=== PATIENT | female | born 1990 | race African-American/Black ===

== ENCOUNTER 2017-08-16 20:51 | Emergency (ER) | payer OTHER ==
[~2017-08-16] VITALS: Ht 162.6 cm; Wt 60.6 kg
[~2017-08-16 20:51] MED LIST: DEPO-PROVER150 MG/ML IM; DESYREL12.5 MG; FLEXERIL10 MG PO; MOTRIN600 MG PO; Omnicef PO; PREDNISONE10 M1 PO; PROMETHAZINE HC25 M1 PO; Proventil,Ventolin H IH; RELPAX40 MG PO; Robitussin DM PO; TESSALON PERLE100 MG PO; TOPAMAX25 MG PO; TYLENOL WITH C1 EACH PO; Tylenol Regular Stre PO; ZOFRAN4 MG PO; Zithromax PO; [UNRECOGNIZED DRUG - REMARK]
[2017-08-16 21:24] LABS: HEMATOCRIT 39.5 % (36.0-46.0); MCH 29.6 PG (29.0-34.0); MCHC 33.7 G/DL (30.0-36.0); MCV 87.8 FL (83-99); MEAN PLAT.VOLUME 9.8 uM^3 (9.5-12.4); PLATELET COUNT 218 K/uL (156-360); RBC DIS.WIDTH-CV 14.2 % (11.8-14.6); RBC DIS.WIDTH-SD 45.1 % (39-53); WHITE BLOOD COUNT 9.7 K/uL (4.1-10.2)
[2017-08-16 21:33] LABS: ADD MIUA? YES; BILIRUBIN NEGATIVE; BLOOD SMALL; COLOR YELLOW ((YELLOW)); GLUCOSE (STRIP) NEGATIVE; KETONES NEGATIVE; LEUKOCYTES LARGE; NITRITE NEGATIVE; PROTEIN (STRIP) 100; SPECIFIC GRAVITY 1.013 (1.000-1.030); UROBILINOGEN 0.2 MG/DL (0.2-1.0)
[2017-08-16 21:35] LABS: CHLORIDE 108 mEq/L (99-109); SODIUM 138 mEq/L (136-147)
[2017-08-16 21:37] LABS: GLUCOSE 98 mg/dL (70-99)
[2017-08-16 21:39] LABS: ANION GAP 7 MEQ/L (2-14); TOTAL BILIRUBIN 0.2 mg/dL (0.0-1.0)
[2017-08-16 21:41] LABS: GFR ESTIMATE (CALCULATED) > 59 mL/min/
[2017-08-16 21:42] LABS: UREA NITROGEN (BUN) 7 mg/dL (9-23)
[2017-08-16 21:49] LABS: EPITHELIAL CELLS 1+ /HPF; UCUL ADDED? YES; WHITE BLOOD CELLS TNTC /HPF (0-5)
[2017-08-16 21:55] LABS: QUANTITATIVE HCG < 4.0 MIU/ML
[2017-08-16 22:11] LABS: ALKALINE PHOSPHATASE 79 IU/L (3-129)
[2017-08-16 22:13] LABS: MUCUS 1+ /LPF; RED BLOOD CELLS 0-5 /HPF (0-5)
[2017-08-16 22:14] LABS: BACTERIA RARE /HPF
[2017-08-16 22:14] LABS: LIPASE 20 U/L (1.0-51.0)
[2017-08-16 22:15] LABS: CASTS NONE SEEN /LPF; CRYSTALS NONE SEEN
[2017-08-16] MEDS ORDERED: DIFLUCAN150 MG PO (22:30)
[2017-08-16] MEDS ORDERED: MOTRIN800 MG PO (22:30)
[2017-08-16] MEDS ORDERED: KEFLEX500 MG PO (22:30)
[2017-08-16 22:47] VITALS: BP 129/75
== END 2017-08-16 22:47 | disposition home or self-care (01) ==
LOC: EME 20:51
DX: N30.00 Acute cystitis without hematuria (principal); F41.9 Anxiety disorder, unspecified; F32.9 Major depressive disorder, single episode, unspecified; G43.909 Migraine, unspecified, not intractable, without status migrainosus; F17.200 Nicotine dependence, unspecified, uncomplicated; Z91.040 Latex allergy status; Z88.5 Allergy status to narcotic agent
CPT/HCPCS: 80053; 81003; 83690; 84702; 85027; 87077; 87086; 87186; 99281; 99284; J0696